=== PATIENT | male | born 1970 | race Caucasian/White ===

== ENCOUNTER 2021-10-01 15:30 | Emergency (ER) | payer SELFPAY ==
[~2021-10-01] VITALS: Ht 177.8 cm; Wt 94.3 kg
--- NOTE | 2021-10-01 15:44 | NUR ---
PT C/O L SIDED CHEST PAIN 02/03, TIGHTNESS SUDDEN ONSET 1 1/2 HR AGO WHILE DRIVING, RADIATES TO L SHOULDER, LEFT FINGER NUMBNESS, LIGHTHEADEDNESS. PT A/OX4. TOLERATING R/A WELL WITH NO SOB. CONNECTED PT TO POX AND MONITOR. SAFETY MEASURES IN PLACE
--- NOTE | 2021-10-01 15:58 | NUR ---
RAC #[id number] S/L; PATENT AND INTACT. BLOOD COLLECTED AND SENT TO LAB
--- NOTE | 2021-10-01 15:59 | NUR ---
AIR DRIER AT PT'S BEDSIDE
[2021-10-01 16:01] LABS: BASOPHILS % (AUTO) 0.6 % (0.0-2.0); EOSINOPHILS % (AUTO) 1.3 % (0.0-6.0); HEMATOCRIT 47 % (39-51); HEMOGLOBIN 15.9 g/dL (13.5-17.5); LYMPHOCYTES # (AUTO) 1.5 K/uL (0.8-4.8); LYMPHOCYTES % (AUTO) 23.4 % (20.0-44.0); MEAN CORPUSCULAR HGB CONC 34 g/dl (31.0-36.0); MEAN CORPUSCULAR VOLUME 97 fL (80-96); MONOCYTES # (AUTO) 0.4 K/uL (0.1-1.30); MONOCYTES % (AUTO) 6.8 % (2.0-12.0); NEUTROPHILS # (AUTO) 4.5 K/uL (1.8-8.9); NEUTROPHILS % (AUTO) 67.9 % (43.0-81.0); PLATELET COUNT (AUTO) 203 K/uL (150-450); RED BLOOD CELL COUNT(AUTO) 4.86 MIL/uL (4.5-6.0); WHITE BLOOD COUNT (AUTO) 6.6 K/uL (4.3-11.0)
[2021-10-01 16:09] LABS: CALCIUM, SERUM 8.6 mg/dL (8.5-10.1); CARBON DIOXIDE 26 mmol/L (21-32); CHLORIDE 106 mmol/L (98-107); CREATININE 1.3 mg/dL (0.6-1.3); GLUCOSE 111 mg/dL (74-106); POTASSIUM 4.6 mmol/L (3.5-5.1); SODIUM SERUM 141 mmol/L (136-145); UREA NITROGEN, BLOOD 22 mg/dL (7-18)
--- NOTE | 2021-10-01 16:41 | NUR ---
URINE COLLECTED AND SENT TO LAB
--- NOTE | 2021-10-01 18:29 | NUR ---
IT TECHNICIAN AT PT'S BEDSIDE
--- NOTE | 2021-10-01 19:54 | NUR ---
Patient discharged to home in stable condition. Written and verbal after care instructions given. Patient verbalizes understanding of instruction. PT ambulatory with a steady gait.
[2021-10-01 22:02] VITALS: BP 127/91
== END 2021-10-01 22:02 | disposition home or self-care (01) ==
LOC: ER 16:06
DX: R07.89 Other chest pain (principal); M25.512 Pain in left shoulder; I10 Essential (primary) hypertension; Z98.890 Other specified postprocedural states
CPT/HCPCS: 36415; 71045-TC; 80048-TC; 82550-TC; 82553; 84484-TC; 85025-TC; 85378-TC